=== PATIENT | male | born 1960 ===

== ENCOUNTER 2023-09-01 12:46 | Observation (INO) ==
[~2023-09-01 12:46] MED LIST: Ampicillin ADVAN 2 GM in NS 0.9% 100 ML IVPB ONE; Buffered Lidocaine 1% SYRIN 1 ml INTRADERM ONE; Dexamethasone IV 4 MG/ML VIAL 1 ml VIAL ONE; Gentamicin ADULT 400 MG in NS 0.9% 100 ml BAG 100 ML IVPB ONE; Lactated Ringers 1000 ml BAG 1,000 ML IV SCH; Lidocaine 2% PF 5 ML VIAL ONE; Midazolam 2 mg/2 ml VIAL 1 mg/ml 2 ml VIAL (2 mg) ONE; Ondansetron 4 mg VIAL 2 MG/ML 2 ml VIAL ONE; Propofol 10 MG/ML 20 ML BTL ONE; Scopolamine 1 mg/72hr PATCH TRANSDERM ONE; fentaNYL 100 mcg/2 ml 50 MCG/ML VIAL ONE
[2023-09-01 13:43] LABS: Rapid COVID-19 Molecular Undetected (Undetected)
[2023-09-01] MEDS ORDERED: Scopolamine 1 mg/72hr PATCH ONE (13:43)
[2023-09-01] MEDS ORDERED: Ampicillin ADVAN 2 GM in NS 0.9% 100 ML 100 ML IVPB ONE (14:00)
[2023-09-01] MEDS ORDERED: Ondansetron 4 mg VIAL 2 MG/ML 2 ml VIAL IV PRN (14:25)
[2023-09-01] MEDS ORDERED: NS 0.9% 1000 ml BAG 1,000 ML IV SCH (14:30)
[2023-09-01] MEDS ORDERED: Furosemide 20 mg/2 ml IV VIAL ONE (16:21)
[2023-09-01] MEDS ORDERED: Naloxone 0.4 mg VIAL 0.4 mg/ml 1 ml VIAL IV PRN (17:10)
[2023-09-01] MEDS ORDERED: fentaNYL 100 mcg/2 ml 50 MCG/ML VIAL IV PRN (17:10)
[2023-09-01] MEDS ORDERED: HYDROmorphone 1 MG/1 ML SYRINGE ONE (17:22)
[2023-09-01] MEDS: HYDROmorphone 1 MG/1 ML SYRINGE IV PRN ×5 (17:24→18:04)
[2023-09-01] MEDS: Magnesium Hydroxide LIQ 30 ML UDC PO SCH (21:56)
[2023-09-01] MEDS: Neomycin/Polym/Bacit TOP OINT 15 GM TOPICAL SCH (22:32)
[2023-09-02] MEDS: Neomycin/Polym/Bacit TOP OINT 15 GM TOPICAL SCH (09:15)
[2023-09-02] MEDS: Magnesium Hydroxide LIQ 30 ML UDC PO SCH (09:15)
== END 2023-09-02 10:15 | disposition home or self-care (01) ==
LOC: OR 12:46 → SSU 12:46
PROVIDERS: ADMIT Urology; ATTEND Urology